=== PATIENT | female | born 1975 | race Caucasian/White ===

== ENCOUNTER → 2021-06-05 12:12 | Outpatient (CLI) | payer OTHER, SELFPAY ==
--- NOTE | ~2021-06-05 | XR_ITS ---
EXAMINATION: XR lumbar spine 2-3V EXAM DATE: 06/05/2021 12:25 INDICATION: Chronic left sided low back pain with left sided sciatica. TECHNIQUE: Lumber spine frontal, lateral, lateral L5-S1 projections for interpretation. There is no prior study for comparison. FINDINGS: The vertebral bodies are aligned in the AP dimension. Vertebral body and disc heights are w ell-maintained. There is mild disc disease from T10 through L1. Mild to moderate lumbar facet arthrop athy. Sacrum, sacroiliac joints, sacral arcuate lines are intact. Paraspinal soft tissue is unremarka ble. IMPRESSION: 1. Mild to moderate lumbar facet arthropathy. 2. Mild thoracolumbar disc disease. Reviewed, dictated and finalized at location A. [facility]
== END ==
PROVIDERS: PCP Internal Medicine; Visit Provider Internal Medicine
DX: M47.815 Spondylosis without myelopathy or radiculopathy, thoracolumbar region (principal); M54.42 Lumbago with sciatica, left side
CPT/HCPCS: 72100